=== PATIENT | male | born 2000 | race Caucasian/White ===

== ENCOUNTER 2024-04-14 23:25 | Emergency (ER) | payer BC ==
[~2024-04-14] VITALS: Ht 177.8 cm; Wt 84.4 kg
[2024-04-14 23:55] VITALS: BP 124/69; PULSE 81; RESP 19; TEMP 98.6; O2SAT 100
[2024-04-15] MEDS: FLUORESCEIN SODIUM 1 STRIP STRIP OP SCH
[2024-04-15] MEDS: TETRACAINE HCL 0.5% 4 ML OPHTH SOLN OP SCH
[2024-04-15] MEDS: DIPH,PERTUSS(ACELL),TET VAC/PF 0.5 ML VIAL IM ONE (00:10)
[2024-04-15] MEDS ORDERED: ERYT1OIN7 OP (00:43)
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
== END 2024-04-15 00:57 | disposition home or self-care (01) ==
LOC: EDH 23:25
DX: S00.81XA Abrasion of other part of head, initial encounter (principal); Y08.89XA Assault by other specified means, initial encounter; Y93.89 Activity, other specified; Y92.89 Other specified places as the place of occurrence of the external cause; Y99.8 Other external cause status
CPT/HCPCS: 90471; 90715; 99284